=== PATIENT | male | born 1970 | race African-American/Black ===

== ENCOUNTER 2019-03-30 06:30 | Emergency (ER) | payer MEDICAID ==
[~2019-03-30] VITALS: Ht 175.3 cm; Wt 79.4 kg
[2019-03-30 06:35] VITALS: BP 100/110
--- NOTE | 2019-03-30 06:35 | NUR ---
TO BED # 02 AMBULATORY
--- NOTE | 2019-03-30 06:40 | NUR ---
48 YO M BIB SELF PRESENTS TO THE ED FOR MEDICATION REFILLS: PREDNISONE 5 MG BID METOPROLOL 25MG BID MYCOPHENOLIC ACID BID TACROLIMUS 1 MG 6 CAPS BID PT HAS HX: KIDNEY TRANSPLANT, 2011 AND HTN. DENIES PAIN OR ANY S/SX.
--- NOTE | 2019-03-30 07:15 | NUR ---
DR ZHANG AT BEDSIDE FOR PT EVALUATION.
--- NOTE | 2019-03-30 07:34 | NUR ---
Note undone in EDM - 03/30/19 at 0736 by [facility] Patient discharged with v/s stable. Written and verbal after care instructions given and explained. Patient alert, oriented and verbalized understanding of instructions. Ambulatory with steady gait. All questions addressed prior to discharge. ID band removed. Patient advised to follow up with PMD. Rx of Tacrolimus, Myfortic, Metropolol, Prednisone given. Patient educated on indication of medication including possible reaction and side effects. Opportunity to ask questions provided and answered.
[2019-03-30 07:36] VITALS: BP 104/75
== END 2019-03-30 07:36 | disposition home or self-care (01) ==
LOC: MED 06:30
DX: I10 Essential (primary) hypertension (principal); Z76.0 Encounter for issue of repeat prescription; Z48.22 Encounter for aftercare following kidney transplant; F17.200 Nicotine dependence, unspecified, uncomplicated
CPT/HCPCS: 99283

== ENCOUNTER 2019-06-13 06:17 | Emergency (ER) | payer MEDICAID ==
[~2019-06-13] VITALS: Ht 175.3 cm; Wt 77.1 kg
[2019-06-13 06:23] VITALS: BP 183/108
--- NOTE | 2019-06-13 06:32 | NUR ---
PT CAME IN TO ER FOR MEDICATION REFILLS. VSS. MED HX: HTN, DM, AND KIDNEY TRANSPLANT IN 2012. BLOOD SUGAR 196. REQUESTING REFILL FOR METOPROLOL TARTRATE 50MG 1 TABLET BID, PREDNISONE 5MG 1 TABLET BID, AND TACROLIMUS 1MG 6 CAPSULES BID. SAFETY MEASURES IN PLACE. WAITING FOR ERMD TO EVALUATE PT.
[2019-06-13 06:48] VITALS: BP 183/108
--- NOTE | 2019-06-13 06:50 | NUR ---
Patient discharged with v/s stable. Refills for Rx medications METOPROLOL, TACROLIMUS, PREDNISONE was given. ID band cut off. All Pt questions were addressed.
== END 2019-06-13 06:48 | disposition home or self-care (01) ==
LOC: MED 06:17
DX: I10 Essential (primary) hypertension (principal); F17.200 Nicotine dependence, unspecified, uncomplicated; Z94.0 Kidney transplant status; Z76.0 Encounter for issue of repeat prescription
CPT/HCPCS: 82948; 99283